=== PATIENT | male | born 1965 | race Two or more races ===

== ENCOUNTER 2019-12-20 08:14 | Outpatient (CLI) | payer OTHER | END 2019-12-20 08:19 | disposition home or self-care (01) | LOC: SONOGRAMA 08:14 | DX: E04.1 Nontoxic single thyroid nodule (principal) ==

== ENCOUNTER 2022-11-29 08:26 | Outpatient (CLI) | payer OTHER | END 2022-11-29 08:29 | disposition home or self-care (01) | LOC: SONOGRAMA 08:26 | PROVIDERS: ATTEND Pathology Anatomic Pathology & Clinical Pathology | DX: D34 Benign neoplasm of thyroid gland (principal); E07.9 Disorder of thyroid, unspecified; E04.1 Nontoxic single thyroid nodule; E04.2 Nontoxic multinodular goiter ==